=== PATIENT | male | born 1995 | race African-American/Black ===

== ENCOUNTER 2024-12-21 14:29 | Emergency (ER) | payer MEDICAID, OTHER ==
[~2024-12-21] VITALS: Ht 175.3 cm; Wt 91.4 kg
[2024-12-21 15:42] VITALS: BP 110/70; PULSE 78; RESP 18; TEMP 98.2; O2SAT 94
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
[2024-12-21] MEDS: HYDROcodone-ACET 5/325MG TAB PO ONE (16:26)
[2024-12-21] MEDS ORDERED: NAPR-746 PO (17:16)
[2024-12-21] MEDS ORDERED: METH-1181 PO (17:23)
== END 2024-12-21 17:18 | disposition home or self-care (01) ==
LOC: ER 14:29
DX: M54.2 Cervicalgia (principal); F17.210 Nicotine dependence, cigarettes, uncomplicated; V49.9XXA Car occupant (driver) (passenger) injured in unspecified traffic accident, initial encounter; Y93.89 Activity, other specified; Y92.410 Unspecified street and highway as the place of occurrence of the external cause; Y99.8 Other external cause status
CPT/HCPCS: 72040

== ENCOUNTER 2024-12-23 18:42 | Emergency (ER) | payer MEDICAID, OTHER ==
[~2024-12-23] VITALS: Ht 175.3 cm; Wt 93.0 kg
[~2024-12-23 18:42] MED LIST: METH-1181 PO; NAPR-746 PO
[2024-12-23 19:59] VITALS: BP 117/59; PULSE 66; RESP 18; TEMP 98.9; O2SAT 99
[2024-12-23] MEDS: KETOROLAC TROMETH 60MG/2ML VIAL IM ONE (20:13)
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
== END 2024-12-23 20:53 | disposition home or self-care (01) ==
LOC: ER 18:47
DX: S13.4XXA Sprain of ligaments of cervical spine, initial encounter (principal); S80.12XA Contusion of left lower leg, initial encounter; F17.210 Nicotine dependence, cigarettes, uncomplicated; F15.90 Other stimulant use, unspecified, uncomplicated; Z79.899 Other long term (current) drug therapy; V43.52XA Car driver injured in collision with other type car in traffic accident, initial encounter; Y93.I9 Activity, other involving external motion; Y92.89 Other specified places as the place of occurrence of the external cause; Y99.8 Other external cause status
CPT/HCPCS: 72040; 73590; 96372; 99284; J1885

== ENCOUNTER 2025-05-16 19:51 | Emergency (ER) | payer MEDICAID, OTHER ==
[~2025-05-16] VITALS: Ht 172.7 cm; Wt 180.0 kg
--- NOTE | 2025-05-16 20:03 | ED.PDOC ---
Musculoskeletal HPI Comments s PT PRESENTS TO ED FOR CC OF R 5TH TOE PAIN AND PURULENCE X 1 WK S/P "STUBBING" TOE. PT REPORTS SOME NIGHT CHILLS. Chief Complaint: Lower Extremity Time Seen by MD: 19:52 Primary Care Provider: NONE Reviewed Notes: Nurses Notes, Medications, Allergies Allergies: Coded Allergies: NO KNOWN ALLERGIES (Unverified , 07/07/15) Home Meds Active Scripts Methocarbamol (Methocarbamol) 500 Mg Tab, 500 MG PO Q8HP PRN for 10 Days, #30 TAB 0 Refills Prov:BERNADETTE BLACK PAYROLL ASSISTANT 12/21/24 Naproxen (Naproxen) 500 Mg Tab, 500 MG PO BIDPC for 10 Days, #20 TAB 0 Refills Prov:BERNADETTE BLACK PAYROLL ASSISTANT 12/21/24 Information Source: Patient Mode of Arrival: Ambulatory Past Medical History PAST MEDICAL HISTORY: Denies Surgical History: Denies all surgeries Family History Family History: Reviewed,noncontributory to illness Social History Smoker: Cigarettes Alcohol: Denies ETOH Use Drugs: Marijuana Constitutional: denies: chills, diaphoresis, fatigue, fever, malaise, sweats, weakness, others EENTM: denies: blurred vision, double vision, ear bleeding, ear discharge, ear drainage, ear pain, ear ringing, eye pain, eye redness, hearing loss, mouth pain, mouth swelling, nasal discharge, nose bleeding, nose congestion, nose pain, photophobia, tearing, throat pain, throat swelling, voice changes, others Respiratory: denies: cough, hemoptysis, orthopnea, SOB at rest, shortness of breath, SOB with excertion, stridor, wheezing, others Cardiovascular: denies: chest pain, dizzy spells, diaphoresis, Dyspnea on exertion, edema, irregular heart beat, left arm pain, lightheadedness, palpitations, PND, syncope, others Gastrointestinal: denies: abdomen distended, abdominal pain, blood streaked bowels, constipated, diarrhea, dysphagia, difficulty swallowing, hematemesis, melena, nausea, poor appetite, poor fluid intake, rectal bleeding, rectal pain, vomiting, others Genitourinary: denies: burning, dysuria, flank pain, frequency, hematuria, incontinence, penile discharge, penile sore, pain, testicle pain, testicle swel ling, urgency, others Neurological: denies: dizziness, fainting, headache, left sided numbness, left sided weakness, numbness, paresthesia, pre-existing deficit, right sided numbness, right sided weakness, seizure, speech problems, tingling, tremors, weakness, others Musculoskeletal: reports: others (right little toe injury); denies: back pain, gout, joint pain, joint swelling, muscle pain, muscle stiffness, neck pain Integumetry: denies: bruises, change in color, change in hair/nails, dryness, laceration, lesions, lumps, rash, wounds, others Allergic/Immunocompromised: denies: Difficulty Healing, Frequent Infections, Hives, Itching, others Hematologic/Lymphatic: denies: anemia, blood clots, easy bleeding, easy bruising, swollen glands, others Endocrine: denies: excessive hunger, excessive sweating, excessive thirst, excessive urination, flushing, intolerance to cold, intolerance to heat, unexplained weight gain, unexplained weight loss, others Psychiatric: denies: anxiety, bipolar disorder, depression, hopeless, panic disorder, schizophrenia, sleepless, suicidal, others Physical Exam General Appearance: No Apparent Distress, Normal HEENT: Pharynx Normal Neck: Full Range of Motion Respiratory: Lungs Clear, No Respiratory Distress, Normal Breath Sounds Cardiovascular: No Edema, No Murmur, Normal Peripheral Pulses, Regular Rate/Rhythm Breast Exam: Deferred Gastrointestinal: Non Tender, Soft Genitalia: Deferred Pelvic: Deferred Rectal: Deferred Extremities: Normal capillary refill, Normal range of motion Musculoskeletal : Location: Right Extremity Location: Little Toe (Mild edema noted tenderness along nail bed with erythema no noted drainage strength sensory motion intact cap refill less than 3 seconds) Apperance: Normal Neurologic: Alert, No Motor Deficits, Normal Affect, Normal Mood, No Sensory Deficits Cerebellar Function: Normal Reflexes: NOT DONE Skin: Dry, Normal Color, Warm Lymphatic: No Adenopathy Was a procedure done? Was a procedure done?: No Differential Diagnosis EXT Differential Diagnosis: Cellulitis, Fracture X-Ray, Labs, Meds, VS Vital Signs Date Time Temp Pulse Resp B/P (MAP) Pulse Ox O2 Delivery O2 Flow Rate FiO2 05/16/25 19:54 98.3 113 18 119/69 95 98.3 X-Ray, Labs, Meds, VS Comment EXAM: XY R FOOT 3 VIEW XRAY REASON FOR EXAM: 5th toe injury TECHNIQUE: AP, lateral, and oblique views of the right foot are submitted for review. COMPARISON: None FINDINGS: The bones demonstrate normal mineralization. There is no acute fracture or dislocation. The joint spaces are maintained. The soft tissues are grossly unremarkable. IMPRESSION: No acute fracture or dislocation. No noted fracture dislocation or subluxation or osseous lesions. Between webbing of 4th and 5th digit noted purulent drainage redness, likely infection status post stepping toe. Given Rocephin 1 g IM and ibuprofen 800 mg p.o. reports improvement in pain function requesting discharge at this time. Trial of doxy advised to take medications as prescribed side effects discussed. Advised to rest elevate ice. Follow up with PCP in 2-3 days for wound re- evaluation ER return precautions given patient indicates understanding agrees with discharge plan of care Time of 1ST Reevaluation: 20:04 Reevaluation 1ST: Unchanged Time of 2ND Reevaluation: 21:34 Reevaluation 2ND: Improved Patient Education/Counseling: Diagnosis, Treatment, Prognosis, Need For Follow Up Family Education/Counseling: No Family Present Departure 1 Departure Time of Disposition: 21:25 Impression: Primary Impression: Toe infection Disposition: 01 HOME / SELF CARE / HOMELESS (He is in his) Condition: Stable e-Prescriptions Ibuprofen (Ibuprofen) 600 Mg Tab 1 TAB PO TID PRN for 5 Days, #15 TAB Prov: CAMRYN BOBO 05/16/25 Doxycycline Hyclate (Doxycycline Hyclate) 100 Mg Cap 100 MG PO BID for 7 Days, #14 CAP Prov: CAMRYN BOBO 05/16/25 Discharged With: Self Critical Care Note Critical Care Time?: No Stability Stability form required: CAMRYN Lucas May 16, 2025 20:03
--- NOTE | 2025-05-16 21:01 | DVH ---
EXAM: XY R FOOT 3 VIEW XRAY REASON FOR EXAM: 5th toe injury TECHNIQUE: AP, lateral, and oblique views of the right foot are submitted for review. COMPARISON: None FINDINGS: The bones demonstrate normal mineralization. There is no acute fracture or dislocation. The joint spaces are maintained. The soft tissues are grossly unremarkable. IMPRESSION: No acute fracture or dislocation.
[2025-05-16] MEDS ORDERED: IBUP-1454 PO (21:34)
[2025-05-16] MEDS ORDERED: DOXY100C4 PO (21:34)
[2025-05-16] MEDS: cefTRIAXone SOD 1,000 MG VL IM ONE (21:58)
[2025-05-16] MEDS: IBUPROFEN 800 MG TAB PO ONE (21:59)
[2025-05-16 22:09] VITALS: BP 120/71; PULSE 111; RESP 20; TEMP 98.2; O2SAT 99
== END 2025-05-16 22:14 | disposition home or self-care (01) ==
LOC: ER 19:51
DX: L08.9 Local infection of the skin and subcutaneous tissue, unspecified (principal); F17.210 Nicotine dependence, cigarettes, uncomplicated
CPT/HCPCS: 73630; 96372; 99283; J0696